=== PATIENT | female | born 1960 | race Caucasian/White ===

== ENCOUNTER 2017-03-01 15:11 | Emergency (ER) | payer SELFPAY ==
[~2017-03-01] VITALS: Wt 59.0 kg
[~2017-03-01 15:11] MED LIST: AMOXICILLIN500 MG PO; ANAPROX DS550 MG PO; ATARAX25 MG PO; ATIVAN1 MG PO; BACTRIM DS 8001 TA1 PO; CEPHALEXIN500 M1 PO; CIPROFLOXACIN500 MG PO; CYCLOBENZAPRINE10 MG PO; DARVOCET N 1001 TAB PO; DAYPRO600 M1 PO; HYDROCODONE BIT1 T11 PO; MEDROL DOSEPAK4 MG PO; MOTRIN800 MG PO; Motrin,Rufen800 MG PO; NAPROSYN500 MG PO; PERCOCET 325 MG1 TA2 PO; PREDNICOT20 MG PO; PREDNISONE10 MG PO; TRAMADOL HCL50 MG PO; VENTOLIN H0.09 MG/AC INH; VIBRAMYCIN100 MG PO; ZITHROMAX250 MG PO
[2017-03-01 15:18] VITALS: BP 117/83
[2017-03-01 15:40] LABS: BASO # 0.1 10*3/uL (0.0-0.1); BASO % 0.6 % (0.0-1.0); EOS # 0.7 10*3/uL (0.0-0.4); EOS % 8.9 % (1.0-4.0); HEMATOCRIT 38.9 % (37.0-47.0); HEMOGLOBIN 13.1 g/dl (12.0-16.0); LYMPH # 2.7 10*3/uL (1.3-4.4); LYMPH % 33.6 % (27.0-41.0); MEAN CELL VOLUME 97.7 fl (81.0-99.0); MEAN CORPUSCULAR HGB 32.9 pg (27.0-31.0); MEAN CORPUSCULAR HGB CONC 33.7 g/dl (33.0-37.0); MEAN PLATELET VOLUME 10.1 fl (9.6-12.3); MONO # 0.6 10*3/uL (0.1-1.0); MONO % 7.1 % (3.0-9.0); NEUT % 49.6 % (47.0-73.0); PLATELET COUNT AUTOMATED 185 10*3/uL (130-400); RED BLOOD COUNT 3.98 10*6/uL (4.10-5.10); RED CELL DISTRI WIDTH 12.2 % (0-14.5); WHITE BLOOD COUNT 8.2 10*3/uL (4.8-10.8)
[2017-03-01 15:57] LABS: ALKALINE PHOSPHATASE 84 U/L (45-117); BILIRUBIN, TOTAL 0.3 mg/dl (0.2-1.0); BUN 12 mg/dl (7-24); CARBON DIOXIDE 24 mmol/L (21-32); CHLORIDE 109 mmol/L (98-107); EST GLOM FILT AFRICAN AMERICAN > 60 ml/min; GLUCOSE 99 mg/dL (65-99); POTASSIUM 3.9 mmol/L (3.5-5.1); SGOT/AST 61 IU/L (3-35); SGPT/ALT 81 U/L (12-78); SODIUM 141 mmol/L (136-145); TOTAL PROTEIN 7.4 gm/dL (6.4-8.2)
[2017-03-01] MEDS ORDERED: BACTRIM DS 8001 TA1 PO (16:25)
[2017-03-01] MEDS ORDERED: CEFADROXIL500 M1 PO (16:25)
== END 2017-03-01 17:24 | disposition home or self-care (01) ==
LOC: ED 15:11
PROVIDERS: Physician Assistant
DX: L03.116 Cellulitis of left lower limb (principal); R05 Cough; F17.200 Nicotine dependence, unspecified, uncomplicated; Z90.49 Acquired absence of other specified parts of digestive tract; Z88.6 Allergy status to analgesic agent; Z91.018 Allergy to other foods

== ENCOUNTER 2017-03-08 19:39 | Inpatient (IN) | payer SELFPAY ==
[~2017-03-08] VITALS: Ht 160 cm; Wt 68.2 kg
--- NOTE | ~2017-03-08 | CON ---
[place], [place] REPORT OF CONSULTATION NAME: YENNI ALMENDAREZ [facility] #: [id number] UNIT #: [id number] ROOM: 427 DOCTOR: LAURA HYDE DPM BIRTHDATE: [birth year] DOS: 03/10/2017 CHIEF COMPLAINT: Wounds both ankles. HISTORY OF PRESENT ILLNESS: The patient is a 56-year-old female. The patient had noticed the wounds for the last week. PAST MEDICAL HISTORY: Cellulitis, cough, hyperglycemia, protein calorie malnutrition, shortness of breath, tobacco abuse, COPD, epilepsy. PAST SURGICAL HISTORY: Hysterectomy and cholecystectomy. SOCIAL HISTORY: Denies alcohol or illicit drug use, history of smoking 1 pack daily for 30 years. FAMILY HISTORY: Father at age 41. Mother at age 83, cardiac disease, hypertension. ALLERGIES: TORADOL, ALBUTEROL, BANANAS. PHYSICAL EXAMINATION: LOWER EXTREMITY EXAMINATION: Pedal pulses palpable bilateral. There is mild edema noted in bilateral ankle with pain. There is an ulceration anteromedial left ankle, which is full thickness to subcutaneous tissue level. No signs of purulent drainage or foul odor. No signs of underlying abscess. There are superficial abrasions/ulcerations to the medial right ankle with no signs of infection. The patient had arterial and venous Dopplers, which were unremarkable bilateral lower extremity. ASSESSMENT: Ulcerations, bilateral ankle with pain and cellulitis. PLAN: Evaluation and management. Ordered Bactroban and dressing to be applied daily to the ulcerations of both lower extremities. Ordered radiographs three views of each ankle and we will follow up with the patient tomorrow. LAURA HYDE DPM CM:CONSTR:REPORT OF CONSULTATION 1217 03/11/17 0127 interface
--- NOTE | ~2017-03-08 | PR ---
[place], [place] PROGRESS NOTE NAME: YENNI ALMENDAREZ [facility] #: [id number] UNIT #: [id number] ROOM: 427 DOCTOR: RICARDO MCGRATH III, DPM BIRTHDATE: [birth year] DOS: 03/11/2017 SUBJECTIVE: This patient is seen for evaluation regarding bilateral ankle ulcerations. She denies any new complaints. Denies any fevers, chills, nausea, vomiting, chest pain. She does have some COPD, but again no fevers, chills, nausea or vomiting. OBJECTIVE: Neurovascular status is unchanged. She has healthy granular wound appreciated to the medial aspect of bilateral ankles. No fluctuance. No cellulitis. No lymphangitis. No signs of pus drainage. No joint effusion to the ankles bilateral. Muscular strength is maintained. Negative Homans'. Negative calf pain. Light touch sensation is intact. LABORATORY DATA: White blood cell count ____, hemoglobin of 12.5, hematocrit 37.3, platelets 252. ESR on the was 47. White count is most likely secondary to administration of steroids for COPD. Imaging was reviewed. A CT shows no underlying abscess or signs of osteomyelitis or soft tissue gas. DVT study of the left lower extremity showed no signs of blood clot. ASSESSMENT: Ulcerations bilateral ankles that appear to be traumatically induced. TREATMENT PLANS AND RECOMMENDATIONS: Findings as well as prognosis was discussed in detail with the patient. All questions were answered to the patient's apparent satisfaction. This is a 56-year-old female seen at bedside for followup and reevaluation of bilateral ankle ulcerations. Ulcerations appear stable. We will continue with local wound care. The patient is okay for discharge from our standpoint. We will follow up with her on an outpatient basis. RICARDO MCGRATH III, DPM CM:LISA [id number] RICARDO MCGRATH III, DPM 03/11/17 1350 interface
[~2017-03-08 19:39] MED LIST changes: +CEFADROXIL500 M1 PO
[2017-03-08 19:45] VITALS: BP 132/50
[2017-03-08 20:10] LABS: BASO # 0.1 10*3/uL (0.0-0.1); BASO % 0.5 % (0.0-1.0); EOS # 0.5 10*3/uL (0.0-0.4); EOS % 4.9 % (1.0-4.0); HEMATOCRIT 39.9 % (37.0-47.0); HEMOGLOBIN 13.6 g/dl (12.0-16.0); IG # 0.1 10*3/uL (0.0-0.1); LYMPH # 2.6 10*3/uL (1.3-4.4); LYMPH % 24.9 % (27.0-41.0); MEAN CELL VOLUME 95.9 fl (81.0-99.0); MEAN CORPUSCULAR HGB 32.7 pg (27.0-31.0); MEAN CORPUSCULAR HGB CONC 34.1 g/dl (33.0-37.0); MEAN PLATELET VOLUME 9.4 fl (9.6-12.3); MONO # 0.6 10*3/uL (0.1-1.0); MONO % 5.9 % (3.0-9.0); NEUT # 6.7 10*3/uL (2.3-7.9); NEUT % 63.3 % (47.0-73.0); PLATELET COUNT AUTOMATED 239 10*3/uL (130-400); RED BLOOD COUNT 4.16 10*6/uL (4.10-5.10); RED CELL DISTRI WIDTH 12.3 % (0-14.5); WHITE BLOOD COUNT 10.6 10*3/uL (4.8-10.8)
[2017-03-08 20:24] LABS: ALKALINE PHOSPHATASE 85 U/L (45-117); BILIRUBIN, TOTAL 0.4 mg/dl (0.2-1.0); BUN 10 mg/dl (7-24); C-REACTIVE PROTEIN 3.66 MG/DL (0-0.3); CARBON DIOXIDE 26 mmol/L (21-32); CHLORIDE 105 mmol/L (98-107); EST GLOM FILT AFRICAN AMERICAN > 60 ml/min; GLUCOSE 129 mg/dL (65-99); POTASSIUM 3.9 mmol/L (3.5-5.1); SGOT/AST 51 IU/L (3-35); SGPT/ALT 45 U/L (12-78); SODIUM 140 mmol/L (136-145); TOTAL PROTEIN 7.4 gm/dL (6.4-8.2)
[2017-03-08 20:50] VITALS: BP 130/70
[2017-03-08 21:00] VITALS: BP 136/58
[2017-03-09] VITALS: BP 130/73
[2017-03-09 06:21] LABS: BASO % 0.5 % (0.0-1.0); EOS # 0.5 10*3/uL (0.0-0.4); EOS % 6.7 % (1.0-4.0); HEMATOCRIT 37.4 % (37.0-47.0); HEMOGLOBIN 12.6 g/dl (12.0-16.0); LYMPH # 2.2 10*3/uL (1.3-4.4); LYMPH % 27.5 % (27.0-41.0); MEAN CELL VOLUME 98.2 fl (81.0-99.0); MEAN CORPUSCULAR HGB 33.1 pg (27.0-31.0); MEAN CORPUSCULAR HGB CONC 33.7 g/dl (33.0-37.0); MEAN PLATELET VOLUME 9.8 fl (9.6-12.3); MONO # 0.7 10*3/uL (0.1-1.0); MONO % 8.4 % (3.0-9.0); NEUT # 4.5 10*3/uL (2.3-7.9); NEUT % 56.5 % (47.0-73.0); PLATELET COUNT AUTOMATED 220 10*3/uL (130-400); RED BLOOD COUNT 3.81 10*6/uL (4.10-5.10); RED CELL DISTRI WIDTH 12.3 % (0-14.5); WHITE BLOOD COUNT 7.9 10*3/uL (4.8-10.8)
[2017-03-09 06:42] LABS: HEMOGLOBIN A1c 5.3 % (4.8-5.6)
[2017-03-09 06:53] LABS: BUN 7 mg/dl (7-24); CARBON DIOXIDE 26 mmol/L (21-32); CHLORIDE 108 mmol/L (98-107); CHOLESTEROL 161 mg/dL (<200); EST GLOM FILT AFRICAN AMERICAN > 60 ml/min; FREE T4 1.29 ng/dl (0.76-1.46); GLUCOSE 87 mg/dL (65-99); HDL CHOLESTEROL 37 mg/dl (40-60); LDL CHOLESTEROL 103 mg/dL (9-159); SODIUM 140 mmol/L (136-145); TRIGLYCERIDES 104 mg/dl (<150); VLDL CHOLESTEROL 21 mg/dL (6-40)
[2017-03-09 07:00] LABS: THYROID STIM HORMONE (HS) 0.423 uIU/ml (0.358-4.75)
[2017-03-09 07:48] LABS: FOLIC ACID 23.61 ng/mL (>5.38)
[2017-03-09 08:00] VITALS: BP 122/71
[2017-03-09] MEDS ORDERED: EXCEDRIN EXTRA1 EACH PO (08:41)
[2017-03-09 12:00] VITALS: BP 120/67
[2017-03-09 16:00] VITALS: BP 122/71
[2017-03-09 20:00] VITALS: BP 90/68
[2017-03-10] VITALS: BP 119/64
[2017-03-10 08:00] VITALS: BP 110/56
[2017-03-10 08:14] LABS: HEPATITIS C VIRUS ANTIBODY >11.0 s/co (0.0-0.9)
[2017-03-10 08:35] LABS: BASO % 0.1 % (0.0-1.0); HEMATOCRIT 39.2 % (37.0-47.0); HEMOGLOBIN 13.1 g/dl (12.0-16.0); IG # 0.1 10*3/uL (0.0-0.1); LYMPH # 1.3 10*3/uL (1.3-4.4); MEAN CORPUSCULAR HGB 32.4 pg (27.0-31.0); MEAN CORPUSCULAR HGB CONC 33.4 g/dl (33.0-37.0); MEAN PLATELET VOLUME 9.8 fl (9.6-12.3); MONO # 0.1 10*3/uL (0.1-1.0); MONO % 1.3 % (3.0-9.0); NEUT # 6.8 10*3/uL (2.3-7.9); NEUT % 82.2 % (47.0-73.0); PLATELET COUNT AUTOMATED 250 10*3/uL (130-400); RED BLOOD COUNT 4.04 10*6/uL (4.10-5.10); RED CELL DISTRI WIDTH 12.1 % (0-14.5); WHITE BLOOD COUNT 8.3 10*3/uL (4.8-10.8)
[2017-03-10 08:58] LABS: ALBUMIN 2.7 gm/dl (3.1-4.5); ALKALINE PHOSPHATASE 80 U/L (45-117); BILIRUBIN, TOTAL 0.2 mg/dl (0.2-1.0); BUN 14 mg/dl (7-24); CARBON DIOXIDE 26 mmol/L (21-32); CHLORIDE 108 mmol/L (98-107); EST GLOM FILT AFRICAN AMERICAN > 60 ml/min; GLUCOSE 147 mg/dL (65-99); POTASSIUM 4.5 mmol/L (3.5-5.1); SGOT/AST 30 IU/L (3-35); SGPT/ALT 40 U/L (12-78); SODIUM 142 mmol/L (136-145); TOTAL PROTEIN 7.2 gm/dL (6.4-8.2)
[2017-03-10 09:10] LABS: RHEUMATOID ARTHRITIS FACTOR <10.0 IU/mL (0.0-13.9)
[2017-03-10 12:00] VITALS: BP 124/63
[2017-03-10 16:00] VITALS: BP 90/53
[2017-03-10 20:00] VITALS: BP 121/51
[2017-03-11] VITALS: BP 129/70
[2017-03-11 07:35] LABS: BASO % 0.1 % (0.0-1.0); HEMATOCRIT 37.3 % (37.0-47.0); HEMOGLOBIN 12.5 g/dl (12.0-16.0); IG # 0.3 10*3/uL (0.0-0.1); LYMPH # 1.5 10*3/uL (1.3-4.4); MEAN CELL VOLUME 98.9 fl (81.0-99.0); MEAN CORPUSCULAR HGB 33.2 pg (27.0-31.0); MEAN CORPUSCULAR HGB CONC 33.5 g/dl (33.0-37.0); MONO # 0.3 10*3/uL (0.1-1.0); MONO % 1.9 % (3.0-9.0); NEUT # 14.6 10*3/uL (2.3-7.9); NEUT % 87.2 % (47.0-73.0); PLATELET COUNT AUTOMATED 252 10*3/uL (130-400); RED BLOOD COUNT 3.77 10*6/uL (4.10-5.10); RED CELL DISTRI WIDTH 12.5 % (0-14.5); WHITE BLOOD COUNT 16.7 10*3/uL (4.8-10.8)
[2017-03-11 07:46] LABS: BUN 16 mg/dl (7-24); CARBON DIOXIDE 25 mmol/L (21-32); CHLORIDE 109 mmol/L (98-107); EST GLOM FILT AFRICAN AMERICAN > 60 ml/min; GLUCOSE 130 mg/dL (65-99); POTASSIUM 4.5 mmol/L (3.5-5.1); SODIUM 142 mmol/L (136-145)
[2017-03-11 08:00] VITALS: BP 128/58
[2017-03-11 12:00] VITALS: BP 125/60
[2017-03-11] MEDS ORDERED: SUPRAX400 M2 PO (15:35)
[2017-03-11] MEDS ORDERED: DOXYCYCLINE100 MG PO (15:35)
[2017-03-11] MEDS ORDERED: PREDNISONE50 MG PO (15:35)
== END 2017-03-11 17:31 | disposition home or self-care (01) | DRG 603 ==
LOC: ED 19:39 → EDHOLD 20:09 → 4E 20:09
PROVIDERS: Hospitalist; Internal Medicine; Internal Medicine Nephrology; Physician Assistant
DX: L03.116 Cellulitis of left lower limb (principal); E44.1 Mild protein-calorie malnutrition; J44.1 Chronic obstructive pulmonary disease with (acute) exacerbation; F17.210 Nicotine dependence, cigarettes, uncomplicated; R70.0 Elevated erythrocyte sedimentation rate; R79.82 Elevated C-reactive protein (CRP); R76.8 Other specified abnormal immunological findings in serum; G40.909 Epilepsy, unspecified, not intractable, without status epilepticus; L98.499 Non-pressure chronic ulcer of skin of other sites with unspecified severity; Z79.899 Other long term (current) drug therapy; Z71.6 Tobacco abuse counseling; Z88.8 Allergy status to other drugs, medicaments and biological substances; Z91.018 Allergy to other foods; Z90.710 Acquired absence of both cervix and uterus; Z82.49 Family history of ischemic heart disease and other diseases of the circulatory system; Z90.49 Acquired absence of other specified parts of digestive tract

== ENCOUNTER 2019-02-02 22:46 | Emergency (ER) | payer SELFPAY ==
[~2019-02-02] VITALS: Ht 160 cm; Wt 72.6 kg
[~2019-02-02 22:46] MED LIST changes: +DOXYCYCLINE100 MG PO; +EXCEDRIN EXTRA1 EACH PO; +PREDNISONE50 MG PO; +SUPRAX400 M2 PO
[2019-02-02 22:48] VITALS: BP 162/58
[2019-02-03] MEDS ORDERED: CEPHALEXIN500 M1 PO (01:21)
== END 2019-02-03 01:25 | disposition home or self-care (01) ==
LOC: ED 22:46
DX: S90.511A Abrasion, right ankle, initial encounter (principal); L03.115 Cellulitis of right lower limb; F17.200 Nicotine dependence, unspecified, uncomplicated; Z88.8 Allergy status to other drugs, medicaments and biological substances; Z88.6 Allergy status to analgesic agent; Z91.018 Allergy to other foods; X58.XXXA Exposure to other specified factors, initial encounter; Y93.89 Activity, other specified; Y92.89 Other specified places as the place of occurrence of the external cause; Y99.8 Other external cause status

== ENCOUNTER 2019-02-05 14:55 | Emergency (ER) | payer SELFPAY ==
[~2019-02-05] VITALS: Ht 160 cm; Wt 72.6 kg
--- NOTE | ~2019-02-05 | EKG ---
[place], [place] ELECTROCARDIOGRAM REPORT NAME: YENNI ALMENDAREZ UNIT #: [id number] ROOM: DOCTOR: EPIPHANY DRAFT REPORT BIRTHDATE: [birth year] [facility] Test Date: 2019-02-05 Test Time: 14:59:07 Pat Name: YENNI ALMENDAREZ Department: Room: Gender: F Song Lyricist: [facility] : 1960 Requested By: SINAN JORGE Order Number: [id number] Reading MD: Nathan Sherman MD Measurements Intervals [place] Rate: 77 P: 43 CO: 144 QRS: 29 QRSD: 88 T: -4 QT: 421 QTc: 477 Interpretive Statements Sinus rhythm Nonspecific ST T changes Electronically Signed On 02-07-2019 8:13:04 PDT by Nathan Shermna MD CM:EKGRPT:ELECTROCARDIOGRAM REPORT [id number] SINAN KULKARNI DRAFT REPORT SINAN JORGE M.D.
[2019-02-05 15:06] VITALS: BP 143/55
[2019-02-05 15:20] LABS: WHITE BLOOD COUNT 7.7 10*3/uL (4.8-10.8)
[2019-02-05 15:21] LABS: BASO # 0.1 10*3/uL (0.0-0.1); BASO % 0.7 % (0.0-1.0); EOS # 0.9 10*3/uL (0.0-0.4); EOS % 11.1 % (1.0-4.0); HEMATOCRIT 36.3 % (37.0-47.0); LYMPH # 4.2 10*3/uL (1.3-4.4); MEAN CELL VOLUME 97.3 fl (81.0-99.0); MEAN CORPUSCULAR HGB 32.2 pg (27.0-31.0); MEAN CORPUSCULAR HGB CONC 33.1 g/dl (33.0-37.0); MEAN PLATELET VOLUME 10.7 fl (9.6-12.3); MONO # 0.6 10*3/uL (0.1-1.0); MONO % 7.4 % (3.0-9.0); NEUT % 25.7 % (47.0-73.0); PLATELET COUNT AUTOMATED 202 10*3/uL (130-400); RED BLOOD COUNT 3.73 10*6/uL (4.10-5.10); RED CELL DISTRI WIDTH 12.8 % (0-14.5)
[2019-02-05 15:33] LABS: ACT PARTIAL THROMBO TIME 25.5 SECONDS (20.0-32.1); INTERNATIONAL NORM RATIO 0.9 (2.0-3.5)
[2019-02-05 15:39] LABS: ALBUMIN 3.2 gm/dl (3.1-4.5); ALKALINE PHOSPHATASE 85 U/L (45-117); BUN 11 mg/dl (7-24); CHLORIDE 113 mmol/L (98-107); CREATININE 0.78 mg/dL (0.55-1.02); POTASSIUM 3.5 mmol/L (3.5-5.1); SGOT/AST 45 IU/L (3-35); SGPT/ALT 50 U/L (12-78); SODIUM 144 mmol/L (136-145); TOTAL PROTEIN 7.5 gm/dL (6.4-8.2)
[2019-02-05 15:41] LABS: TROPONIN I < 0.015 ng/ml (<0.045)
== END 2019-02-05 18:01 | disposition home or self-care (01) ==
LOC: ED 14:55
PROVIDERS: Emergency Medicine
DX: R60.0 Localized edema (principal); R06.02 Shortness of breath; M54.5 Low back pain; R05 Cough; J44.9 Chronic obstructive pulmonary disease, unspecified; G40.909 Epilepsy, unspecified, not intractable, without status epilepticus; F17.200 Nicotine dependence, unspecified, uncomplicated; G89.29 Other chronic pain; Z88.8 Allergy status to other drugs, medicaments and biological substances; Z91.018 Allergy to other foods; Z88.6 Allergy status to analgesic agent; Z79.899 Other long term (current) drug therapy; Z90.710 Acquired absence of both cervix and uterus; Z90.49 Acquired absence of other specified parts of digestive tract

== ENCOUNTER 2020-10-09 08:13 | Observation (INO) | payer SELFPAY ==
[2020-10-09] VITALS (7 sets, daily range): BP systolic 120–152; BP diastolic 58–87
[~2020-10-09] VITALS: Ht 157.4 cm; Wt 57.7 kg
[2020-10-09 08:58] LABS: BASO # 0.1 10*3/uL (0.0-0.1); BASO % 1.1 % (0.0-1.0); EOS # 0.4 10*3/uL (0.0-0.4); EOS % 7.5 % (1.0-4.0); HEMATOCRIT 34.7 % (37.0-47.0); LYMPH # 2.3 10*3/uL (1.3-4.4); LYMPH % 44.3 % (27.0-41.0); MEAN CORPUSCULAR HGB 31.4 pg (27.0-31.0); MEAN CORPUSCULAR HGB CONC 33.4 g/dl (33.0-37.0); MEAN PLATELET VOLUME 10.3 fl (9.6-12.3); MONO # 0.5 10*3/uL (0.1-1.0); NEUT % 37.9 % (47.0-73.0); PLATELET COUNT AUTOMATED 236 10*3/uL (130-400); RED BLOOD COUNT 3.69 10*6/uL (4.10-5.10); RED CELL DISTRI WIDTH 12.2 % (0-14.5); WHITE BLOOD COUNT 5.2 10*3/uL (4.8-10.8)
[2020-10-09 09:13] LABS: ALBUMIN 3.3 gm/dl (3.1-4.5); ALKALINE PHOSPHATASE 72 U/L (45-117); BUN 19 mg/dl (7-24); CHLORIDE 108 mmol/L (98-107); CREATININE 0.75 mg/dL (0.55-1.02); POTASSIUM 3.4 mmol/L (3.5-5.1); SGOT/AST 26 IU/L (3-35); SGPT/ALT 20 U/L (12-78); SODIUM 141 mmol/L (136-145); TOTAL PROTEIN 8.4 gm/dL (6.4-8.2)
== END 2020-10-09 22:06 | disposition left against medical advice (07) ==
LOC: ED 08:13 → EDHOLD 11:29 → 4E 19:58
PROVIDERS: Emergency Medicine; ADMIT Internal Medicine; ATTEND Internal Medicine
DX: S39.012A Strain of muscle, fascia and tendon of lower back, initial encounter (principal); M54.16 Radiculopathy, lumbar region; D64.9 Anemia, unspecified; E87.6 Hypokalemia; E87.8 Other disorders of electrolyte and fluid balance, not elsewhere classified; R73.9 Hyperglycemia, unspecified; J44.9 Chronic obstructive pulmonary disease, unspecified; G40.909 Epilepsy, unspecified, not intractable, without status epilepticus; X58.XXXA Exposure to other specified factors, initial encounter; Y93.89 Activity, other specified; Y92.89 Other specified places as the place of occurrence of the external cause; Y99.8 Other external cause status

== ENCOUNTER 2020-12-19 19:28 | Emergency (ER) | payer MEDICAID ==
[~2020-12-19] VITALS: Ht 157.4 cm; Wt 55.8 kg
[2020-12-19 19:49] VITALS: BP 115/55
[2020-12-19 20:40] LABS: ALBUMIN 3.1 gm/dl (3.1-4.5); ALKALINE PHOSPHATASE 49 U/L (45-117); BUN 16 mg/dl (7-24); CHLORIDE 99 mmol/L (98-107); CREATININE 0.71 mg/dL (0.55-1.02); POTASSIUM 3.8 mmol/L (3.5-5.1); SGOT/AST 35 IU/L (3-35); SGPT/ALT 14 U/L (12-78); SODIUM 137 mmol/L (136-145); TOTAL PROTEIN 8.8 gm/dL (6.4-8.2)
[2020-12-19 20:43] LABS: TROPONIN I < 0.015 ng/ml (<0.045)
[2020-12-19 20:54] LABS: MEAN CELL VOLUME 92.7 fl (81.0-99.0); MEAN CORPUSCULAR HGB CONC 33.4 g/dl (33.0-37.0); MEAN PLATELET VOLUME 9.7 fl (9.6-12.3); PLATELET COUNT AUTOMATED 156 10*3/uL (130-400); RED CELL DISTRI WIDTH 11.8 % (0-14.5); WHITE BLOOD COUNT 3.7 10*3/uL (4.8-10.8)
[2020-12-19 21:17] LABS: ATYPICAL LYMPHS 4 % (0-0); OVALOCYTES FEW; PLATELET SUFFICIENCY NORMAL (NORMAL); TOTAL CELLS COUNTED 100 #CELLS
[2020-12-19] MEDS ORDERED: ZITHROMAX250 MG PO (23:01)
== END 2020-12-20 00:20 | disposition home or self-care (01) ==
LOC: ED 19:28
PROVIDERS: Student in an Organized Health Care Education/Training Program
DX: U07.1 COVID-19 (principal); Z88.8 Allergy status to other drugs, medicaments and biological substances; Z90.711 Acquired absence of uterus with remaining cervical stump; Z90.49 Acquired absence of other specified parts of digestive tract; Z98.890 Other specified postprocedural states; Z87.891 Personal history of nicotine dependence

== ENCOUNTER 2024-09-12 11:18 | Emergency (ER) | payer OTHER ==
[2024-09-12 11:30] VITALS: BP 156/87
[2024-09-12] MEDS ORDERED: Albuterol Sulf/Ipratropium 3 ML VIAL NEB ONE (12:00)
[2024-09-12] MEDS ORDERED: VENT7GM INH (13:12)
[2024-09-12] MEDS ORDERED: LEVOFLOXACIN750 M2 PO (13:12)
[2024-09-12] MEDS ORDERED: PREDNISONE50 MG PO (13:12)
== END 2024-09-12 13:24 | disposition home or self-care (01) ==
LOC: ED 11:18
DX: J44.9 Chronic obstructive pulmonary disease, unspecified (principal); Z20.822 Contact with and (suspected) exposure to COVID-19; F17.200 Nicotine dependence, unspecified, uncomplicated; Z91.018 Allergy to other foods; Z88.8 Allergy status to other drugs, medicaments and biological substances; Z90.49 Acquired absence of other specified parts of digestive tract; Z90.710 Acquired absence of both cervix and uterus; Z98.890 Other specified postprocedural states

== ENCOUNTER → 2025-01-11 | Outpatient (CLI) | payer MEDICAID ==
[~2025-01-11] MED LIST changes: +LEVOFLOXACIN750 M2 PO; +VENT7GM INH
[2025-01-11 11:05] LABS: BASO # 0.1 10*3/uL (0.0-0.1); BASO % 0.8 % (0.0-1.0); EOS # 0.7 10*3/uL (0.0-0.4); EOS % 10.3 % (1.0-4.0); HEMATOCRIT 36.6 % (37.0-47.0); MEAN CELL VOLUME 94.6 fl (81.0-99.0); MEAN CORPUSCULAR HGB 29.7 pg (27.0-31.0); MEAN CORPUSCULAR HGB CONC 31.4 g/dl (33.0-37.0); MEAN PLATELET VOLUME 10.1 fl (9.6-12.3); MONO # 0.5 10*3/uL (0.1-1.0); MONO % 6.9 % (3.0-9.0); NEUT # 3.7 10*3/uL (2.3-7.9); NEUT % 56.2 % (47.0-73.0); PLATELET COUNT AUTOMATED 236 10*3/uL (130-400); RED BLOOD COUNT 3.87 10*6/uL (4.10-5.10); RED CELL DISTRI WIDTH 12.1 % (0-14.5); WHITE BLOOD COUNT 6.5 10*3/uL (4.8-10.8)
[2025-01-11 11:34] LABS: ALKALINE PHOSPHATASE 82 U/L (46-116); BUN 17 mg/dl (9-23); CHLORIDE 105 mmol/L (98-107); SGPT/ALT 26 U/L (5-49); TOTAL PROTEIN 7.9 gm/dL (6.0-8.0)
[2025-01-11 13:40] LABS: BF LYMPHOCYTES 51 %; BF MACROPHAGES 44 %; BF NEUTROPHILS 3 %
[2025-01-12 05:06] LABS: HBsAG SCREEN Negative (Negative); HEP B CORE Ab, IgM Negative (Negative)
[2025-01-13 01:06] LABS: LUPUS DRVVT 45.6 sec (0.0-47.0); PTT-LA 29.4 sec (0.0-43.5)
[2025-01-13 02:06] LABS: LUPUS REFLEX INTERPRETATION Comment: (.)
[2025-01-14 00:06] LABS: HCV Ab Reactive (Non Reactive)
== END | disposition home or self-care (01) ==
LOC: LAB 10:04
PROVIDERS: ATTEND Orthopaedic Surgery
DX: M25.462 Effusion, left knee (principal)

== ENCOUNTER → 2025-02-02 | Outpatient (CLI) | payer MEDICAID | END | disposition home or self-care (01) | LOC: CARD 13:00 | PROVIDERS: ATTEND Physician Assistant | DX: R01.1 Cardiac murmur, unspecified (principal) ==

== ENCOUNTER 2025-02-14 12:17 | Emergency (ER) | payer MEDICAID ==
[~2025-02-14] VITALS: Ht 157.4 cm; Wt 63.5 kg
[2025-02-14 12:36] VITALS: BP 121/56
[2025-02-14] MEDS ORDERED: VALTREX1000 MG PO (13:12)
== END 2025-02-14 13:12 | disposition home or self-care (01) ==
LOC: ED 12:17
DX: B02.9 Zoster without complications (principal); J44.9 Chronic obstructive pulmonary disease, unspecified; F17.200 Nicotine dependence, unspecified, uncomplicated; Z79.899 Other long term (current) drug therapy; Z88.8 Allergy status to other drugs, medicaments and biological substances; Z90.49 Acquired absence of other specified parts of digestive tract; Z90.710 Acquired absence of both cervix and uterus; Z98.890 Other specified postprocedural states